=== PATIENT | male | born 1975 | race Caucasian/White ===

== ENCOUNTER 2019-12-20 09:21 | Emergency (ER) | payer SELFPAY ==
[2019-12-20 11:37] VITALS: BP 114/67
--- NOTE | 2019-12-20 11:57 | UC ---
Hand/Wrist HPI - HPI Summary HPI Summary: 44-year-old male comes in with a chief complaint of pain and clicking on his right thumb. Patient was climbing on the climbing wall yesterday and had sudden onset of pain in the distal interphalangeal joint of his right thumb. The pain is primarily on the radial aspect of the joint. He also notes that she flexes and extends his thumb he hears and feels a clicking and that area. No complaint of any loss of sensation or strength. The DIP of the right thumb is swollen. 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 TONSILS [place] 1997. LASER EYE SURGERY 2007 - Family History Known Family History: Positive: Non-Contributory - Social History Alcohol Use: Occasionally Substance Use Type: None Smoking Status (MU): Former Smoker Review of Systems All Other Systems Reviewed And Are Negative: Yes Constitutional: Positive: Negative Skin: Positive: Negative Eyes: Positive: Negative ENT: Positive: Negative Respiratory: Positive: Negative Cardiovascular: Positive: Negative Gastrointestinal: Positive: Negative Motor: Positive: Negative Neurovascular: Positive: Negative Musculoskeletal: Positive: Other: - SEE HPI Neurological/Mental Status: Positive: Negative Psychological: Positive: Negative Is Patient Immunocompromised?: No Physical Exam Triage Information Reviewed: Yes Appearance: Well-Appearing, No Pain Distress, Well-Nourished Vital Signs: Initial Vital Signs Temp 97.5 F 12/20/19 11:32 Pulse 48 12/20/19 11:32 Resp 18 12/20/19 11:32 BP 114/67 12/20/19 11:32 Pulse Ox 100 12/20/19 11:32 Vital Signs Reviewed: Yes Eye Exam: Normal Eyes: Positive: Conjunctiva Clear Neck: Positive: Supple Respiratory: Positive: No respiratory distress Musculoskeletal: Positive: Other: - Right thumb DIP is swollen. Tender to palpation on the radial aspect. Normal sensation normal capillary refill normal strength and range of motion. The PIP is nontender to palpation and not swollen. Neurological: Positive: Alert Psychological: Positive: Age Appropriate Behavior Skin Exam: Normal Hand/Wrist Course/Dx - Course Course Of Treatment: Corporate Planning Manager: Milton Bridges Daniel, ([id number]) Sponge Packer: JUNE ( NUANCE) Report Date: 12/20/2019 12:30:00 Report Status: Final ====== Start of Report Content Patient Name: MILE FRANKS Medical Record#: [id number] Ordering Physician: Isaias Sorto MD Acct.#: [id number] : Age: 44 Sex: M Location: [facility] Exam Date: 12/20/19 1152 ADM Status: REG ER Order Information: THUMB RIGHT Accession Number: [id number] CPT: 85083 HISTORY: PAIN/CLICKING DIP S/P INJURY 12/19/19 . COMPARISONS: November 04, 2015 VIEWS: 3, Frontal, lateral, and oblique views of the first digit of the right hand FINDINGS: BONE DENSITY: Normal. BONES: There is no displaced fracture. JOINTS: There is no arthropathy. ALIGNMENT: There is no dislocation. SOFT TISSUES: Unremarkable. OTHER FINDINGS: None. IMPRESSION: NO ACUTE OSSEOUS INJURY. IF SYMPTOMS PERSIST, RECOMMEND REPEAT IMAGING. <Electronically signed by Milton Bridges MD in OV> 12/20/19 1226 Dictated By: Milton Bridges MD Dictated Date/Time: 12/20/19 1226 Transcribed Date/Time: 12/20/19 1226 Copy to: CC:No Primary Care Phys,NOPCP ; Isaias Sorto MD Imaging - [facility] Imaging - [facility] Imaging - [facility] [id number] [place] [address] [place], [place] [id number] [place] [id number] ph ([phone]) ph ([phone]) ph ([phone]) End of Report Content I discussed the x-rays with the patient. Plan is ice and anti-inflammatories splint and rest. Follow-up with the hand specialist if not completely improved or worse. - Differential Dx/Diagnosis Provider Diagnosis: Sprain of right thumb Discharge ED - Sign-Out/Discharge Documenting (check all that apply): Patient Departure All imaging exams completed and their final reports reviewed: Yes - Discharge Plan Condition: Stable Disposition: HOME Patient Education Materials: Finger Sprain (ED) Referrals: Jak Parmar MD [Medical Doctor] - Maritza Davenport MD [Medical Doctor] - Jaylan Brennan NP [Nurse Practitioner] - Additional Instructions: FOLLOW UP WITH THE ORTHOPEDIC HAND SPECIALIST. GET REEVALUATED SOONER IF NOT IMPROVED OR WORSE OR ANY QUESTIONS OR CONCERNS. - Billing Disposition and Condition Condition: STABLE Disposition: Home
== END 2019-12-20 13:08 | disposition home or self-care (01) ==
LOC: UCEAST 09:21
DX: S63.621A Sprain of interphalangeal joint of right thumb, initial encounter (principal); Z87.891 Personal history of nicotine dependence; X58.XXXA Exposure to other specified factors, initial encounter; Y93.31 Activity, mountain climbing, rock climbing and wall climbing; Y92.9 Unspecified place or not applicable
CPT/HCPCS: 99211; G0463